=== PATIENT | female | born 1975 | race Caucasian/White ===

== ENCOUNTER 2020-07-15 18:11 | Emergency (ER) | payer MEDICAID ==
[~2020-07-15] VITALS: Ht 157.5 cm; Wt 54.4 kg
[2020-07-15 18:23] VITALS: BP_SYST 127
[2020-07-15 19:15] LABS: BASOPHILS # (AUTO) 0.1 K/uL (0.0-0.2); BASOPHILS % (AUTO) 0.8 % (0.0-2.0); EOSINOPHILS # (AUTO) 0.1 K/uL (0.0-0.4); EOSINOPHILS % (AUTO) 0.7 % (0.0-4.0); HEMOGLOBIN 12.8 g/dL (12.0-16.0); LYMPHOCYTES # (AUTO) 1.6 K/uL (1.0-5.5); LYMPHOCYTES % (AUTO) 20.8 % (20.5-51.5); MEAN CORPUSCULAR HEMOGLOBIN 31 pg (27-31); MEAN CORPUSCULAR HGB CONC 34 % (32-36); MEAN CORPUSCULAR VOLUME 92 fL (79.0-98.0); MONOCYTES # (AUTO) 0.9 K/uL (0.0-1.0); MONOCYTES % (AUTO) 11.7 % (1.7-9.3); NEUTROPHILS # (AUTO) 4.9 K/uL (1.8-7.7); PLATELET COUNT (AUTO) 210 K/uL (130-430); RED BLOOD CELL COUNT(AUTO) 4.11 MIL/uL (4.2-6.2); RED CELL DISTRIBUTION WIDTH 13.8 % (9.0-15.0); WHITE BLOOD COUNT (AUTO) 7.5 K/uL (4.8-10.8)
[2020-07-15 19:28] LABS: CALCIUM 8.7 mg/dL (8.4-11.0); CREATININE 0.61 mg/dL (0.55-1.30)
[2020-07-15 19:28] LABS: BILIRUBIN,URINE NEGATIVE (NEGATIVE); CLARITY/URINE CLEAR (CLEAR); GLUCOSE,URINE NEGATIVE (NEGATIVE); KETONES,URINE NEGATIVE (NEGATIVE); LEUKOCYTE ESTERASE ,URINE NEGATIVE (NEGATIVE); NITRITE, URINE NEGATIVE (NEGATIVE); PROTEIN URINE NEGATIVE (NEGATIVE); UROBILINOGEN,URINE 0.2 (0.2-1.0)
[2020-07-15 19:34] LABS: ALBUMIN 3.9 g/dL (3.4-4.8); TOTAL BILIRUBIN 0.2 mg/dL (0.0-1.0)
[2020-07-15] MEDS ORDERED: KETOROLAC TROMETHAMINE 60 MG/2 ML VIAL IM ONE (19:45)
[2020-07-15 19:49] LABS: BLOOD, URINE TRACE (NEGATIVE); COLOR,URINE STRAW (YELLOW)
[2020-07-15 19:52] LABS: BACTERIA,URINE RARE /HPF (None Seen); MUCUS,URINE None Seen /LPF (None Seen); RBC,URINE 0-3 /HPF (0-3); WBC,URINE 0-3 /HPF (0-3)
[2020-07-15] MEDS ORDERED: HYDR-3917 PO (21:35)
[2020-07-15] MEDS ORDERED: METH-634 PO (21:35)
[2020-07-15] MEDS ORDERED: IBUP-1969 PO (21:35)
[2020-07-15 22:15] VITALS: BP_SYST 125
== END 2020-07-15 22:15 | disposition home or self-care (01) ==
LOC: SED 18:11
DX: R10.2 Pelvic and perineal pain (principal); M54.41 Lumbago with sciatica, right side; Z88.0 Allergy status to penicillin
CPT/HCPCS: 36415; 72100; 76830; 76857; 80053; 81000; 81025; 84702; 85025; 96372; 99285; J1885

== ENCOUNTER 2021-11-19 19:35 | Emergency (ER) | payer MEDICAID ==
[~2021-11-19] VITALS: Ht 157.5 cm; Wt 59.0 kg
[~2021-11-19 19:35] MED LIST: HYDR-3917 PO; IBUP-1969 PO; METH-634 PO
[2021-11-19 20:47] VITALS: BP_SYST 159
--- NOTE | 2021-11-19 20:53 | NUR ---
Patient triaged and placed in waiting room. VS checked and patient appears in no acute distress at this time. Accompanied by , awaiting available bed, and MD notified of need for MSE.
[2021-11-19 21:25] LABS: CALCIUM 9.1 mg/dL (8.4-11.0); CREATININE 0.65 mg/dL (0.55-1.30); POTASSIUM 3.3 mmol/L (3.5-5.1)
[2021-11-19 21:27] LABS: BASOPHILS # (AUTO) 0.1 K/uL (0.0-0.2); BASOPHILS % (AUTO) 1.4 % (0.0-2.0); EOSINOPHILS # (AUTO) 0.1 K/uL (0.0-0.4); EOSINOPHILS % (AUTO) 2.4 % (0.0-4.0); HEMATOCRIT 31.4 % (36-48); LYMPHOCYTES # (AUTO) 1.6 K/uL (1.0-5.5); LYMPHOCYTES % (AUTO) 30.5 % (20.5-51.5); MEAN CORPUSCULAR VOLUME 71 fL (79.0-98.0); MONOCYTES # (AUTO) 0.6 K/uL (0.0-1.0); MONOCYTES % (AUTO) 10.9 % (1.7-9.3); NEUTROPHILS # (AUTO) 2.8 K/uL (1.8-7.7); NEUTROPHILS % (AUTO) 54.8 % (40.0-70.0); PLATELET COUNT (AUTO) 291 K/uL (130-430); RED BLOOD CELL COUNT(AUTO) 4.44 MIL/uL (4.2-6.2); WHITE BLOOD COUNT (AUTO) 5.1 K/uL (4.8-10.8)
[2021-11-19 21:31] LABS: ALBUMIN 3.7 g/dL (3.4-4.8); TOTAL BILIRUBIN 0.2 mg/dL (0.0-1.0)
[2021-11-19] MEDS ORDERED: KETOROLAC TROMETHAMINE 30 MG VIAL IVP ONE (21:45)
--- NOTE | 2021-11-19 22:00 | NUR ---
Placed in room 07 . Placed on quality assurance monitor final, blood pressure machine and pulse oximeter. To gown for exam. Side rails up. Report given to ANAM Cuellar
--- NOTE | 2021-11-19 22:05 | NUR ---
RECEIVED PT IN ROOM 7, W/ CC ABD PAIN RADIATITING TO LOWER BACK. Pt VERBALIZES SHE FEELS BETTER WHEN SHE LAYS ON HER LEFT SIDE, SHE HAS TAKEN MOTRIN FOR THE PAIN THE PAST 2 WEEKS- THAT HELPED A LITTLE, SHE HAS HAD THE PAIN FOR 2 WEEKS AND IS CURRENTLY RATING PAIN 7/10. MOTRIN LAST TAKEN AT 5PM.
--- NOTE | 2021-11-19 22:09 | NUR ---
ER at bedside examining patient.
[2021-11-19] MEDS ORDERED: LIDOCAINE PATCH 5% 1 EA TP ONE (22:30)
[2021-11-19] MEDS ORDERED: ACETAMINOPHEN 500 MG TABLET PO ONE (22:30)
[2021-11-19] MEDS ORDERED: IBUPROFEN 600 MG TABLET PO ONE (22:30)
[2021-11-19 23:51] LABS: BILIRUBIN,URINE NEGATIVE (NEGATIVE); BLOOD, URINE NEGATIVE (NEGATIVE); CLARITY/URINE CLEAR (CLEAR); COLOR,URINE YELLOW (YELLOW); GLUCOSE,URINE NEGATIVE (NEGATIVE); KETONES,URINE NEGATIVE (NEGATIVE); LEUKOCYTE ESTERASE ,URINE NEGATIVE (NEGATIVE); NITRITE, URINE NEGATIVE (NEGATIVE); PROTEIN URINE NEGATIVE (NEGATIVE); UROBILINOGEN,URINE 0.2 (0.2-1.0)
[2021-11-19] MEDS ORDERED: KETOROLAC TROMETHAMINE 30 MG VIAL ONE (23:58)
--- NOTE | 2021-11-20 00:41 | NUR ---
PT VERBALIZED FEELING BETTER /P PAIN MED
[2021-11-20] MEDS ORDERED: POLY17PO4 PO (01:28)
[2021-11-20] MEDS ORDERED: SENN-298 PO (01:28)
[2021-11-20 01:40] VITALS: BP_SYST 129
--- NOTE | 2021-11-20 01:40 | NUR ---
Patient given written and verbal discharge instructions and verbalizes understanding. ER MD discussed with patient the results and treatment provided. Patient in stable condition. ID arm band removed. IV catheter removed intact and dressing applied, no active bleeding. Rx Miralax, Senna PO given. Patient educated on pain management and to follow up with PMD. Pain Scale 0/10. Opportunity for questions provided and answered.
== END 2021-11-20 01:40 | disposition home or self-care (01) ==
LOC: SED 19:35
DX: K59.00 Constipation, unspecified (principal); R10.11 Right upper quadrant pain; R11.0 Nausea; Z79.899 Other long term (current) drug therapy
CPT/HCPCS: 99284; 74176; 96374; 80053; 83690; 85025; 87086; 36415; 76376; 81003; J1885

== ENCOUNTER 2023-11-01 06:59 | Day surgery (SDC) | payer MEDICAID ==
[~2023-11-01] VITALS: Ht 154.9 cm; Wt 64.4 kg
[~2023-11-01 06:59] MED LIST changes: +POLY17PO4 PO; +SENN-298 PO
[2023-11-01] MEDS ORDERED: fentaNYL CITRATE/PF 100 MCG/2 ML AMP ONE ×2 (07:38→08:59)
[2023-11-01] MEDS ORDERED: MIDAZOLAM HCL 5 MG/5 ML VIAL ONE ×2 (07:38→08:57)
[2023-11-01 07:40] LABS: HCG,QUAL RESULT NEGATIVE (NEGATIVE)
[2023-11-01 11:48] VITALS: O2SAT 100
[2023-11-01 14:03] VITALS: BP_SYST 133; PULSE 71; RESP 11
== END 2023-11-01 10:43 | disposition home or self-care (01) ==
LOC: SDS 06:59 → SMU 07:02 → SDS 10:43
PROVIDERS: ATTEND Internal Medicine
DX: Z12.11 Encounter for screening for malignant neoplasm of colon (principal); R10.11 Right upper quadrant pain; K29.50 Unspecified chronic gastritis without bleeding; B96.81 Helicobacter pylori [H. pylori] as the cause of diseases classified elsewhere; K57.30 Diverticulosis of large intestine without perforation or abscess without bleeding; K64.8 Other hemorrhoids; G43.909 Migraine, unspecified, not intractable, without status migrainosus; K21.9 Gastro-esophageal reflux disease without esophagitis; M19.90 Unspecified osteoarthritis, unspecified site; Z88.0 Allergy status to penicillin; Z98.891 History of uterine scar from previous surgery; Z98.890 Other specified postprocedural states
CPT/HCPCS: 45378; 43239; 99152; 84703; 88305; 88312; 88313; 99153; G0378; J2250; J3010